=== PATIENT | female | born 1955 | race Caucasian/White ===

== ENCOUNTER → 2019-12-21 | Outpatient (CLI) | payer BC ==
[2015-05-08 19:37] VITALS: BP 132/86
[~2019-12-21] MED LIST: Flomax; Flonase; [UNRECOGNIZED DRUG - OTHER]; claritin
--- NOTE | 2019-12-21 13:47 | RAD ---
Bone mineral density exam History: Steroid use, postmenopausal Comparison: None Findings: Bone mineral density examination utilizing DEXA was performed. Right hip bone mineral density of 674 mg/cm2 corresponds with a T score -2.3, Z score -0.8. The bone mineral density of the lumbar spine was 1.063 g/cm2 which corresponds with a T-score of -1.0, Z score 0.9. By World [employer] on Osteoporosis criteria, a T score of 0 to-1 SD is considered to be within normal limits. A T score of -1 to -2.5 SD is considered osteopenia. A T score less than -2.5 SD is considered osteoporosis Impression: 1. There is osteopenia of the right hip. Bone mineral density of the lumbar spine is borderline between normal and osteopenia. Electronically signed by: Isacc Carrasco MD (12/21/2019 1:45 PM) [id number]
== END | disposition home or self-care (01) ==
LOC: DXRAD 09:48
PROVIDERS: ATTEND Physician Assistant Medical
DX: M85.88 Other specified disorders of bone density and structure, other site (principal); M27.9 Disease of jaws, unspecified
CPT/HCPCS: 77080

== ENCOUNTER → 2021-08-16 | Outpatient (CLI) | payer BC ==
[2015-05-08 19:37] VITALS: BP 132/86
--- NOTE | 2021-08-22 16:49 | RAD ---
Bilateral digital screening 2-D and 3-D (digital breast tomosynthesis) mammogram: Reason for examination: Routine screening. Comparison: Mammogram from 08/01/2016. Interpretation was made with the benefit of CAD. FINDINGS: Breast density: Category B. There are scattered areas of fibroglandular density. There are calcifications in the 1:30 position of the left breast about the 5 cm to 7.5 cm from the ni pple. These measure the 2.6 cm in maximum dimension. No other groups of abnormal calcifications are i dentified. There is no suspicious mass or architectural distortion. Heterogeneous in size and density in measure 2.6 cm in maximum dimension. IMPRESSION: Calcifications the 1:30 position left breast. Further evaluation with a diagnostic left mammogram is recommended. Assessment: BI-RADS 0. Incomplete. Recommendation: Diagnostic left mammogram. The patient will be contacted with the results and asked to schedule for additional imaging. The flako ent will receive a letter with the results in the mail. Patient information will be entered into the mammography reminder system with a target recall date for the next mammogram. A reminder letter will be generated. Electronically signed by: Brigette Garcia MD (08/22/2021 4:46 PM) [id number]
== END ==
LOC: MAMMO 10:04
PROVIDERS: ATTEND Physician Assistant Medical
DX: Z12.31 Encounter for screening mammogram for malignant neoplasm of breast (principal)
CPT/HCPCS: 77063; 77067